=== PATIENT | female | born 1960 | race Two or more races ===

== ENCOUNTER 2016-07-14 15:12 | Emergency (ER) | payer BC ==
[~2016-07-14] VITALS: Ht 162.6 cm; Wt 68.9 kg
[2016-07-14] MEDS ORDERED: IBUPROFEN600 MG ORAL (16:42)
[2016-07-14 16:50] VITALS: BP 126/87
[2016-07-14 16:52] VITALS: BP 126/87
--- NOTE | 2016-07-14 17:36 | Diagnostic Imaging Report ---
Indication: PAIN Technique: 3 views of the right knee Comparison: None Findings:Discussion a small suprapatellar effusion. No acute fractures. No dislocations. The joint spaces are preserved Impression:No acute process
--- NOTE | 2016-07-14 22:37 | Emergency Room Report ---
History of Present Illness General Chief Complaint: Pain Present Illness HPI The patient is a 56-year-old female presenting with right knee pain and weakness which began yesterday. The patient states that she was walking downstairs and felt that the knee gave out. The patient denies falling. Patient states that she is experiencing a 5/10 dull ache to the posterior knee. Pain is nonradiating. Patient denies numbness or tingling of the leg. The patient denies prior injury to the knee. The patient does state that she injured the hamstring one month prior and has felt that the knee has been progressively getting weaker since that time. The patient denies any other symptoms Allergies: Coded Allergies: ACETAMINOPHEN (Verified Allergy, Unknown, 07/14/16) HYDROCODONE (Verified Allergy, Unknown, 07/14/16) MORPHINE (Verified Allergy, Unknown, 07/14/16) PENICILLIN G (Verified Allergy, Unknown, 07/14/16) Patient History Past Medical History: see triage record Pertinent Family History: none Now: No Reviewed Nursing Documentation: PMH: Agreed, PSxH: Agreed Nursing Documentation-PMH Past Medical History: No Stated History Review of Systems All Other Systems: negative except mentioned in HPI Physical Exam Vital Signs Date Time Temp Pulse Resp B/P Pulse Ox O2 Delivery O2 Flow Rate FiO2 07/14/16 15:30 99.1 77 14 122/85 99 Room Air Sp02 EP Interpretation: reviewed, normal General Appearance: no apparent distress, alert, GCS 15, non-toxic Head: normocephalic, atraumatic Eyes: bilateral eye PERRL, bilateral eye normal inspection Musculoskeletal: gait/station normal, normal range of motion, no calf tenderness, tender - posterior knee Neurologic: alert, oriented x3, responsive, motor strength/tone normal, sensory intact, speech normal Psychiatric: judgement/insight normal, memory normal, mood/affect normal, no suicidal/homicidal ideation Reflexes: 2+ knee (R), 2+ knee (L), 2+ ankle (R), 2+ ankle (L) Skin: normal color, no rash, warm/dry, well hydrated Medical Decision Making PA Attestation Dr. Benitez is my supervising physician. Patient management was discussed with my supervising physician Diagnostic Impression: Primary Impression: Knee strain ER Course The patient is a 56-year-old female presenting with right knee pain and weakness Ddx considered include but not limited to sprain/strain, fracture, contusion Physical exam: Vitals are within normal limits. No apparent distress Right knee: No obvious deformity. Full active range of motion. Sensation intact to light touch. No edema or erythema. No joint laxity. There is tenderness to palpation over the posterior knee. Normal gait X-ray of the knee is unremarkable. Patient is given Motrin for pain. The patient has a sleeve for the knee for compression. The patient will be discharged home and is told to follow up with primary care doctor. The patient is told that she may need MRI if pain persists. Other X-Ray Diagnostic Results Other X-Ray Diagnostic Results : X-Ray Ordered: R knee Date: Jul 14, 2016 Findings: no fractures, no dislocation, no soft tissue swelling Number of Views: 3 PA Scribe Text I am acting as scribe for my supervising physician. My supervising physician's interpretation of the R knee xrays are there are no fractures, dislocations or soft tissue swelling. Last Vital Signs Date Time Temp Pulse Resp B/P Pulse Ox O2 Delivery O2 Flow Rate FiO2 07/14/16 16:52 98.9 81 15 126/87 99 Room Air Status: improved Disposition: HOME, SELF-CARE Condition: Improved Scripts Ibuprofen* (MOTRIN*) 600 Mg Tablet 600 MG ORAL Q8H Y for For Pain, #30 TAB 0 Refills Prov: VIVEK PATIÑO 07/14/16 Referrals: NON PHYSICIAN (PCP) Patient Instructions: Knee Pain Additional Instructions: I discussed my findings with the patient. All questions and concerns have been answered. Treatment and medication compliance have been addressed. I advised the patient that they need to follow up with PMD in 3-5 days. Return to ED if pain remains or worsens, numbness or tingling occurs, new rash is noticed, fever is noticed, or if needed for any reason. Patient verbalized understanding of discharge instructions. If pain persists, patient may require MRI VIVEK PATIÑO Jul 14, 2016 22:37
== END 2016-07-14 16:53 | disposition home or self-care (01) ==
LOC: EMR 15:55
DX: S86.811A Strain of other muscle(s) and tendon(s) at lower leg level, right leg, initial encounter (principal); W10.9XXA Fall (on) (from) unspecified stairs and steps, initial encounter; Y92.009 Unspecified place in unspecified non-institutional (private) residence as the place of occurrence of the external cause; Z88.0 Allergy status to penicillin; Z88.6 Allergy status to analgesic agent
CPT/HCPCS: 99283